=== PATIENT | female | born 1935 | race Caucasian/White ===

== ENCOUNTER → 2018-02-17 13:40 | Outpatient (CLI) | payer MEDICARE, OTHER ==
[2013-06-26 10:10] VITALS: BMI 25.0
== END | disposition home or self-care (01) ==
LOC: D.CT 13:40
DX: R51 Headache (principal)

== ENCOUNTER 2018-08-22 10:43 | Outpatient (CLI) | payer MEDICARE, OTHER ==
[~2018-08-22] VITALS: Ht 175.3 cm; Wt 64.1 kg
[2018-08-22 11:15] LABS: ANION GAP 10.4 mmol/L (8-16); CALCIUM 9.2 mg/dL (8.5-10.1); INR 1.02 (0.85-1.17); POTASSIUM - SERUM 4.4 mmol/L (3.5-5.1); PROTIME 12.9 SECONDS (11.6-15.0)
[2018-08-22 11:16] LABS: APTT 34.4 SECONDS (22.8-39.4)
[2018-08-22 12:14] LABS: BASOPHILS 0 % (0-2); EOSINOPHILS 0.8 % (0-7); HEMATOCRIT 39.7 % (36.0-48.0); HEMOGLOBIN 12.5 g/dL (12-16); IMMATURE GRANULOCYTES 0.3 % (0-5); LYMPHOCYTES 20.1 % (15-50); MCH 27.4 pg (26.0-34.0); MCHC 31.5 g/dL (31.0-37.0); MCV 87.1 fL (80.0-100.0); MEAN PLATELET VOLUME 9.3 fL (7.4-10.4); MONOCYTES 6.8 % (2-11); PLATELET COUNT 169 10x3/uL (130-400); RBC 4.56 10x6/uL (4.00-5.40); RDW 13.7 % (11.5-14.5); WBC 7.5 10x3/uL (4.8-10.8)
[2018-08-22 13:16] VITALS: BP 150/55; Ht 175.3 cm; Wt 64.1 kg
--- NOTE | 2018-08-22 18:41 | NUR ---
1710 IV REMOVED 1720 SPOKE WITH RADIOLOGY AND CXR RESULTS IN CHART AND RADIOLOGY IS OK FOR PT TO GO HOME, VS STABLE
== END 2018-08-22 17:20 | disposition home or self-care (01) ==
LOC: D.SP 10:43 → D.CT 13:00 → D.SP 13:00
PROVIDERS: General Practice; ATTEND Internal Medicine Pulmonary Disease
DX: R91.1 Solitary pulmonary nodule (principal)

== ENCOUNTER → 2018-09-28 12:16 | Outpatient (CLI) | payer MEDICARE, OTHER ==
[2018-08-22 13:16] VITALS: BMI 20.8
== END | disposition home or self-care (01) ==
LOC: D.RT 12:16
PROVIDERS: ATTEND Internal Medicine Pulmonary Disease
DX: R06.00 Dyspnea, unspecified (principal)

== ENCOUNTER → 2019-11-08 11:13 | Outpatient (CLI) | payer MEDICARE, OTHER ==
[2018-08-22 13:16] VITALS: BMI 20.8
== END | disposition home or self-care (01) ==
LOC: D.LAB 11:13
PROVIDERS: ATTEND Internal Medicine Pulmonary Disease
DX: Z11.59 Encounter for screening for other viral diseases (principal)

== ENCOUNTER → 2019-11-10 08:42 | Outpatient (CLI) | payer MEDICARE, OTHER ==
[2018-08-22 13:16] VITALS: BMI 20.8
== END | disposition home or self-care (01) ==
LOC: D.ECHO 10-31 09:00 → D.RT 10-31 10:00 → D.ECHO 08:42
PROVIDERS: ATTEND Internal Medicine Pulmonary Disease
DX: R06.00 Dyspnea, unspecified (principal); R94.2 Abnormal results of pulmonary function studies; Z11.59 Encounter for screening for other viral diseases